=== PATIENT | female | born 1960 | race Asian ===

== ENCOUNTER 2018-03-12 03:48 | Emergency (ER) | payer OTHER ==
[~2018-03-12] VITALS: Ht 165.1 cm; Wt 78.5 kg
[~2018-03-12 03:48] MED LIST: ACET500 PO; AZIT250 PO; BUSP5 PO; CARI350; CELE200 PO; ESCI10; HYDACE5 PO; HYDMOR2 PO; IBUP200; IBUP800 PO; LORA1 PO; ONDA8ODT MM; OXYACE5T; PRAM.125 PO; RXHYDMOR2 PO; TELM40; TELM80 PO
[2018-03-12 04:54] LABS: BASOPHILS ABSOLUTE AUTO 0.03 K/mm3 (0.00-0.23); BASOPHILS PERCENT AUTO 0 % (0-2); EOSINOPHILS ABSOLUTE AUTO 0.11 K/mm3 (0.00-0.68); EOSINOPHILS PERCENT AUTO 1 % (0-6); Hematocrit 39.8 % (33.0-51.0); Hemoglobin 13.2 g/dL (11.5-16.0); IMMATURE GRAN ABSOLUTE AUTO 0.03 K/mm3 (0.00-0.10); IMMATURE GRAN PERCENT AUTO 0 % (0-1); LYMPHOCYTES ABSOLUTE AUTO 1.56 K/mm3 (0.84-5.20); LYMPHOCYTES PERCENT AUTO 17 % (21-46); MONOCYTES PERCENT AUTO 8 % (4-13); Mean Corpuscular HGB 28.4 pg (26.0-34.0); Mean Corpuscular HGB Conc 33.2 g/dL (31.5-36.5); Mean Corpuscular Volume 86 fL (80-100); Mean Platelet Volume 9.4 fL (9.1-12.4); NEUTROPHILS ABSOLUTE AUTO 6.93 K/mm3 (1.96-9.15); NEUTROPHILS PERCENT AUTO 74 % (41-73); Platelet Count 376 K/mm3 (150-400); RDW Coefficient Variation 11.8 % (11.7-14.2); RDW Standard Deviation 36.6 fL (35.1-46.3); Red Blood Cell Count 4.64 M/mm3 (3.80-5.20); White Blood Cell Count 9.36 K/mm3 (4.00-11.30)
[2018-03-12] MEDS ORDERED: METF500 PO (05:08)
[2018-03-12 05:11] LABS: Alanine Aminotransfer (ALT/SGP 72 U/L (12-78); Albumin, Blood 3.2 g/dL (3.4-5.0); Albumin/Globulin Ratio 0.8 (0.8-1.8); Alk Phos 123 U/L (50-136); Anion Gap 10 mmol/L (6-16); Aspartate Aminotrans (AST/SGOT 23 U/L (12-37); Bilirubin, Total 0.3 mg/dL (0.1-1.0); Blood Urea Nitrogen 28 mg/dL (8-24); Bun/Creatinine Ratio 50.3 (12.0-20.0); CO2, Blood 24 mmol/L (21-32); Calcium, Blood 9.2 mg/dL (8.5-10.1); Chloride, Blood 99 mmol/L (98-108); Creatinine, Blood 0.56 mg/dL (0.40-1.00); Globulin, Blood 4.1 g/dL (2.2-4.0); Glomerular Filtration Rate >60 (60-); Glucose, Blood 422 mg/dL (70-99); Sodium, Blood 133 mmol/L (136-145); Total Protein, Blood 7.3 g/dL (6.4-8.2)
== END 2018-03-12 06:53 | disposition home or self-care (01) ==
LOC: ER 03:48
PROVIDERS: Emergency Medicine
DX: R51 Headache (principal); E11.65 Type 2 diabetes mellitus with hyperglycemia; I10 Essential (primary) hypertension; Z88.8 Allergy status to other drugs, medicaments and biological substances; Z79.899 Other long term (current) drug therapy; Z79.891 Long term (current) use of opiate analgesic
CPT/HCPCS: 36415; 80053; 82947; 85025; 93005; 93010; J1200; J1817; J2765; J7030

== ENCOUNTER 2019-12-17 15:20 | Inpatient (IN) | payer SELFPAY ==
[~2019-12-17] VITALS: Ht 162.6 cm; Wt 68.0 kg
[~2019-12-17 15:20] MED LIST changes: +SYNJARDY XR 121 EACH PO
[2019-12-17 16:22] LABS: BASOPHILS ABSOLUTE AUTO 0.02 K/mm3 (0.00-0.23); BASOPHILS PERCENT AUTO 0 % (0-2); EOSINOPHILS ABSOLUTE AUTO 0.03 K/mm3 (0.00-0.68); EOSINOPHILS PERCENT AUTO 0 % (0-6); Hematocrit 35.2 % (33.0-51.0); IMMATURE GRAN ABSOLUTE AUTO 0.05 K/mm3 (0.00-0.10); IMMATURE GRAN PERCENT AUTO 0 % (0-1); LYMPHOCYTES ABSOLUTE AUTO 2.64 K/mm3 (0.84-5.20); LYMPHOCYTES PERCENT AUTO 19 % (21-46); MONOCYTES PERCENT AUTO 8 % (4-13); Mean Corpuscular HGB 26.3 pg (26.0-34.0); Mean Corpuscular HGB Conc 31.3 g/dL (31.5-36.5); Mean Corpuscular Volume 84 fL (80-100); Mean Platelet Volume 9.8 fL (9.1-12.4); NEUTROPHILS ABSOLUTE AUTO 9.82 K/mm3 (1.96-9.15); NEUTROPHILS PERCENT AUTO 72 % (41-73); Platelet Count 263 K/mm3 (150-400); RDW Coefficient Variation 13.4 % (11.7-14.2); RDW Standard Deviation 41.5 fL (35.1-46.3); Red Blood Cell Count 4.18 M/mm3 (3.80-5.20); White Blood Cell Count 13.66 K/mm3 (4.00-11.30)
[2019-12-17 16:45] LABS: Alanine Aminotransfer (ALT/SGP 44 U/L (12-78); Albumin/Globulin Ratio 0.8 (0.8-1.8); Alk Phos 187 U/L (50-136); Anion Gap 4 mmol/L (6-16); Aspartate Aminotrans (AST/SGOT 23 U/L (12-37); Bilirubin, Total 0.6 mg/dL (0.1-1.0); Blood Urea Nitrogen 11 mg/dL (8-24); Bun/Creatinine Ratio 33.3 (12.0-20.0); CO2, Blood 26 mmol/L (21-32); Calcium, Blood 8.2 mg/dL (8.5-10.1); Chloride, Blood 106 mmol/L (98-108); Creatinine, Blood 0.33 mg/dL (0.40-1.00); Globulin, Blood 3.9 g/dL (2.2-4.0); Glomerular Filtration Rate >60 (60-); Glucose, Blood 190 mg/dL (70-99); Sodium, Blood 136 mmol/L (136-145); Total Protein, Blood 6.9 g/dL (6.4-8.2)
[2019-12-17] MEDS ORDERED: Lovastatin20 MG PO (17:45)
[2019-12-17] MEDS ORDERED: LISI20 PO (17:46)
--- NOTE | 2019-12-17 18:52 | NUR ---
PATIENT ARRIVEDD TO ROOM 356. REPORTS PAIN IN NECK AND L ARM. GAIT STEADY, ABLE TO TRANSFER TO BATHROOM INDEPENDENTLY. A/OX4, ORIENTED TO ROOM AND USE OF CALL LIGHT. FRIEND NAVID AT BEDSIDE. REPORTS PATIENT HAS NOT BEEN TAKING CARE OF HERSELF SINCE HER A YEAR AGO. NAVID STATES PATIENT IS VERY TEARFUL AND DEPRESSED ALL THE TIME AND HAS LOST A LOT OF WEIGHT. PATIENT REMAINS TACHY IN THE 120'S, CURRENTLY AFEBRILE.
--- NOTE | 2019-12-18 04:50 | NUR ---
SUMMARY PT CONTINUES TO REPORT NECK PAIN. PT HAS BEEN TX PER MAR WITH LITTLE RELIEF. PT HAS TRIED HEATING PAD AND ICE PACKS W/ SOME RELIEF. PT DENIES ANY RECENT TRAUMA OR FALLS. PT HAS SLEPT OFF AND ON T/O SHIFT. PT CURRENTLY AWAKE IN NO DISTRESS. CALL LIGHT IN REACH.
[2019-12-18 05:22] LABS: BASOPHILS ABSOLUTE AUTO 0.03 K/mm3 (0.00-0.23); BASOPHILS PERCENT AUTO 0 % (0-2); EOSINOPHILS ABSOLUTE AUTO 0.19 K/mm3 (0.00-0.68); EOSINOPHILS PERCENT AUTO 2 % (0-6); Hematocrit 34.5 % (33.0-51.0); Hemoglobin 10.5 g/dL (11.5-16.0); IMMATURE GRAN ABSOLUTE AUTO 0.03 K/mm3 (0.00-0.10); IMMATURE GRAN PERCENT AUTO 0 % (0-1); LYMPHOCYTES ABSOLUTE AUTO 3.33 K/mm3 (0.84-5.20); LYMPHOCYTES PERCENT AUTO 29 % (21-46); MONOCYTES ABSOLUTE AUTO 1.33 K/mm3 (0.16-1.47); MONOCYTES PERCENT AUTO 11 % (4-13); Mean Corpuscular HGB 26.3 pg (26.0-34.0); Mean Corpuscular HGB Conc 30.4 g/dL (31.5-36.5); Mean Corpuscular Volume 86 fL (80-100); Mean Platelet Volume 9.8 fL (9.1-12.4); NEUTROPHILS ABSOLUTE AUTO 6.71 K/mm3 (1.96-9.15); NEUTROPHILS PERCENT AUTO 58 % (41-73); Platelet Count 251 K/mm3 (150-400); RDW Coefficient Variation 13.6 % (11.7-14.2); RDW Standard Deviation 43.4 fL (35.1-46.3); White Blood Cell Count 11.62 K/mm3 (4.00-11.30)
[2019-12-18 05:45] LABS: Anion Gap 9 mmol/L (6-16); Blood Urea Nitrogen 11 mg/dL (8-24); Bun/Creatinine Ratio 29.6 (12.0-20.0); CO2, Blood 21 mmol/L (21-32); Calcium, Blood 8.2 mg/dL (8.5-10.1); Chloride, Blood 114 mmol/L (98-108); Creatinine, Blood 0.37 mg/dL (0.40-1.00); Glomerular Filtration Rate >60 (60-); Glucose, Blood 112 mg/dL (70-99); Potassium, Blood 3.3 mmol/L (3.5-5.5); Sodium, Blood 144 mmol/L (136-145)
--- NOTE | 2019-12-18 08:23 | NUR ---
STIFF NECK PT COMPLAINING OF STIFF NECK & INCREASED NECK PAIN. PT STATES NOTHING SEEMS TO BE HELPING. PT ABLE TO SLIGHTLY MOVE NECK AROUND. DR. GUTIERREZ NOTIFIED. STATED HE IS AWARE VIA NURSING NOTES. WILL CONTNUE TO MONITOR.
--- NOTE | 2019-12-18 16:28 | NUR ---
ELEVATED HR/TEMP PT HAS TEMP OF 99.4 AND HR IN THE 120S. DR. GUTIERREZ AWARE. PT MEDICATED WITH TRORADOL TO ASSIST WITH PAIN, FEVER, & HR. WILL CONTINUE TO MONITOR
--- NOTE | 2019-12-18 17:49 | NUR ---
SHIFT SUMMARY PT HAD SEVERE NECK PAIN THE MAJORITY OF THE SHIFT WITH LITTLE RELIEF. PT HAS X RAY OF NECK COMPLETED THIS SHIFT. PT GIVEN TORADOL AND LIDOCAIN PATCH APPLIED TO NECK. PT NOW SLEEPING IN ROOM. APPEARS COMFORTABLE. FAMILY AT BEDSIDE FOR MOST THE DAY. PT HR REMAINS IN THE 120S WITH A FEVER OF 100.9. TYLENOL GIVEN TO AIDE WITH THIS. PT INTAKEING WATER WELL. CONTINUE TO C/O NECK PAIN, BUT APPEARS A LITTLE MORE COMFORTABLE. NO OTHER CHANGES IN ASSESSMENT AT THIS TIME. VSS. WILL CONTINUE TO MONITOR UNTIL TURNOVER IS COMPLETE.
[2019-12-19 05:16] LABS: BASOPHILS ABSOLUTE AUTO 0.02 K/mm3 (0.00-0.23); BASOPHILS PERCENT AUTO 0 % (0-2); EOSINOPHILS ABSOLUTE AUTO 0.14 K/mm3 (0.00-0.68); EOSINOPHILS PERCENT AUTO 2 % (0-6); Hematocrit 33.3 % (33.0-51.0); Hemoglobin 10.2 g/dL (11.5-16.0); IMMATURE GRAN ABSOLUTE AUTO 0.01 K/mm3 (0.00-0.10); IMMATURE GRAN PERCENT AUTO 0 % (0-1); LYMPHOCYTES ABSOLUTE AUTO 2.41 K/mm3 (0.84-5.20); LYMPHOCYTES PERCENT AUTO 29 % (21-46); MONOCYTES ABSOLUTE AUTO 1.02 K/mm3 (0.16-1.47); MONOCYTES PERCENT AUTO 12 % (4-13); Mean Corpuscular HGB Conc 30.6 g/dL (31.5-36.5); Mean Corpuscular Volume 85 fL (80-100); Mean Platelet Volume 9.7 fL (9.1-12.4); NEUTROPHILS PERCENT AUTO 56 % (41-73); Platelet Count 265 K/mm3 (150-400); RDW Coefficient Variation 13.7 % (11.7-14.2); RDW Standard Deviation 42.6 fL (35.1-46.3); Red Blood Cell Count 3.92 M/mm3 (3.80-5.20)
[2019-12-19 05:40] LABS: Anion Gap 6 mmol/L (6-16); Blood Urea Nitrogen 10 mg/dL (8-24); Bun/Creatinine Ratio 25.1 (12.0-20.0); CO2, Blood 25 mmol/L (21-32); Calcium, Blood 8.1 mg/dL (8.5-10.1); Chloride, Blood 112 mmol/L (98-108); Glomerular Filtration Rate >60 (60-); Glucose, Blood 245 mg/dL (70-99); Potassium, Blood 3.7 mmol/L (3.5-5.5); Sodium, Blood 143 mmol/L (136-145)
--- NOTE | 2019-12-19 06:05 | NUR ---
SUMMARY PT HAS SLEPT SOME. PT CONTINUES TO HAVE NECK PAIN. PAIN REDUCED WITH TX PER EMAR. PT CURRENTLY SLLEPING AND BREATHING EASY. CALL LIGHT IN REACH.
--- NOTE | 2019-12-19 13:58 | NUR ---
PT MOVING WELL PT MOVING AROUND WELL IN ROOM. THE MORE PT AMBULATES THE BETTER HER NECK MOVES. PT CONTINUES TO C/O NECK PAIN HOWEVER. MRI COMPLETED. AWAITING RESULTS.
--- NOTE | 2019-12-19 17:16 | NUR ---
SHIFT SUMMARY PT HAD MRI OF NECK COMPLETED TODAY. PT STATES NECK IS SLIGHTLY BETTER BUT STILL 8-9/10 PAIN. PT AMBULATED HALLWAY & SAT UP MORE THIS SHIFT. PT NECK MOVEMENT IMPROVED SLIGHTLY. PT HAS SLIGHT FEVER OF 99.0-100.0 THROUGHOUT DAY. PT CURRENTLY AFEBRILE. HR AT 107. DR. GUTIERREZ AWARE OF TACHYCARDIA. NO OTHER CHANGES IN ASSESSMENT AT THIS TIME. VSS. WILL CONTINUE TO MONITOR UNTIL TURNOVER IS COMPLETE.
--- NOTE | 2019-12-20 04:44 | NUR ---
SUMMARY PT REPORTS FEELING BETTER THIS SHIFT. PT STATES HER NECK FEELS BETTER. PT HAS SLEPT WELL T/O SHIFT. PT EAGER TO GO HOME. CALL LIGHT IN REACH.
[2019-12-20 05:26] LABS: BASOPHILS ABSOLUTE AUTO 0.03 K/mm3 (0.00-0.23); BASOPHILS PERCENT AUTO 0 % (0-2); EOSINOPHILS ABSOLUTE AUTO 0.02 K/mm3 (0.00-0.68); EOSINOPHILS PERCENT AUTO 0 % (0-6); Hematocrit 32.5 % (33.0-51.0); Hemoglobin 9.9 g/dL (11.5-16.0); IMMATURE GRAN ABSOLUTE AUTO 0.02 K/mm3 (0.00-0.10); IMMATURE GRAN PERCENT AUTO 0 % (0-1); LYMPHOCYTES ABSOLUTE AUTO 1.55 K/mm3 (0.84-5.20); LYMPHOCYTES PERCENT AUTO 22 % (21-46); MONOCYTES PERCENT AUTO 13 % (4-13); Mean Corpuscular HGB Conc 30.5 g/dL (31.5-36.5); Mean Corpuscular Volume 85 fL (80-100); Mean Platelet Volume 9.9 fL (9.1-12.4); NEUTROPHILS ABSOLUTE AUTO 4.52 K/mm3 (1.96-9.15); NEUTROPHILS PERCENT AUTO 64 % (41-73); Platelet Count 235 K/mm3 (150-400); RDW Coefficient Variation 13.6 % (11.7-14.2); RDW Standard Deviation 42.4 fL (35.1-46.3); Red Blood Cell Count 3.81 M/mm3 (3.80-5.20); White Blood Cell Count 7.04 K/mm3 (4.00-11.30)
[2019-12-20 06:10] LABS: Anion Gap 8 mmol/L (6-16); Blood Urea Nitrogen 17 mg/dL (8-24); Bun/Creatinine Ratio 48.4 (12.0-20.0); CO2, Blood 23 mmol/L (21-32); Calcium, Blood 8.1 mg/dL (8.5-10.1); Chloride, Blood 110 mmol/L (98-108); Creatinine, Blood 0.35 mg/dL (0.40-1.00); Glomerular Filtration Rate >60 (60-); Glucose, Blood 303 mg/dL (70-99); Potassium, Blood 4.2 mmol/L (3.5-5.5); Sodium, Blood 141 mmol/L (136-145); Thyroid Stimulating Hormone <0.005 uIU/mL (0.360-4.800)
[2019-12-20] MEDS ORDERED: KEFLEX500 MG PO (11:05)
[2019-12-20] MEDS ORDERED: MOBIC (11:06)
[2019-12-20] MEDS ORDERED: METHI10 PO (11:09)
[2019-12-20] MEDS ORDERED: ROXICODONE5 MG PO (11:09)
[2019-12-20] MEDS ORDERED: METO25ER PO (11:12)
[2019-12-20] MEDS ORDERED: ACET325 PO (11:18)
--- NOTE | 2019-12-20 12:28 | NUR ---
PT DISCHARGED. PT DISCHARGED AT 1234. NO CHANGES IN PT CONDITION PRIOR TO DC. PT & DAUGHTER EDUCATED ON DC INSTRUCTIONS & FOLLOW UP APPOINTMENT. NEW MEDS FAXED TO [facility]. PT WHEELED OUT BY AIDE & DRIVEN HOME BY DAUGHTER.
== END 2019-12-20 12:35 | disposition home or self-care (01) | DRG 872 ==
LOC: ER 15:20 → MEDS 17:43 → ENPENDDIS 12-20 10:35 → MEDS 12-20 12:35
PROVIDERS: Internal Medicine; Physician Assistant; ADMIT Hospitalist
DX: A41.9 Sepsis, unspecified organism (principal); L03.114 Cellulitis of left upper limb; E87.6 Hypokalemia; I10 Essential (primary) hypertension; M43.6 Torticollis; E11.9 Type 2 diabetes mellitus without complications; E05.90 Thyrotoxicosis, unspecified without thyrotoxic crisis or storm; M71.522 Other bursitis, not elsewhere classified, left elbow; M54.2 Cervicalgia; E78.5 Hyperlipidemia, unspecified
CPT/HCPCS: 36415; 72040; 72141; 73080; 80048; 80053; 82947; 83605; 84436; 84443; 85025; 85651; 86140; 96374; 99285-25; A9270; A9270-GY; J0690; J7030; J7050; J7120; J7512

== ENCOUNTER → 2025-08-17 | Outpatient (CLI) | payer SELFPAY ==
[~2025-08-17] MED LIST changes: +ACET325 PO; +KEFLEX500 MG PO; +LISI20 PO; +Lovastatin20 MG PO; +METHI10 PO; +METO25ER PO; +MOBIC; +ROXICODONE5 MG PO
== END ==
LOC: LAB 07:55 → LAB SHORT 07:55
DX: C54.1 Malignant neoplasm of endometrium (principal)
CPT/HCPCS: 88305; 88342